=== PATIENT | female | born 1975 | race Caucasian/White ===

== ENCOUNTER → 2020-12-31 | Outpatient (CLI) | payer OTHER ==
[~2020-12-31] MED LIST: CELEXA20 MG PO; HYDROCODON-ACE1 EAC4 PO; NAPROSYN500 MG PO; NORCO 7.5-3251 EACH PO; SYNTHROID112 MCG PO
== END ==
LOC: KOH-I 10:41
DX: R10.11 Right upper quadrant pain (principal); K80.20 Calculus of gallbladder without cholecystitis without obstruction; K76.0 Fatty (change of) liver, not elsewhere classified
CPT/HCPCS: 76705

== ENCOUNTER → 2021-01-16 | Day surgery (SDC) | payer OTHER | END | disposition home or self-care (01) | LOC: OR 01-14 09:15 | DX: K80.10 Calculus of gallbladder with chronic cholecystitis without obstruction (principal); E78.2 Mixed hyperlipidemia; F32.9 Major depressive disorder, single episode, unspecified; E03.9 Hypothyroidism, unspecified; Z88.0 Allergy status to penicillin; Z79.899 Other long term (current) drug therapy | CPT/HCPCS: 84703; J1100; J2250; J2405; J2704; J2710; J3010; J7030; J7120 ==